=== PATIENT | female | born 1995 | race Caucasian/White ===

== ENCOUNTER 2022-07-17 08:23 | Outpatient (REF) | payer BC, SELFPAY ==
[2022-07-17 08:36] LABS: MANUAL DIFF FLAG NO
[2022-07-17 09:11] LABS: Basophils Absolute Auto 0.1 X10*3/uL (0.0-0.2); Basophils Percent Auto 0.7 % (0-2); Eosinophils Absolute Auto 0.4 X10*3/uL (0.0-0.4); Eosinophils Percent Auto 4.3 % (0-4); Hematocrit 41.2 % (37.0-47.0); Hemoglobin 13.5 g/dl (12.0-16.0); Imm Gran Abs Auto 0.02 X10*3/uL (0.00-0.03); Imm Gran Pct Auto 0.2 % (0.0-0.4); Lymphocytes Absolute Auto 2.4 X10*3/uL (1.2-4.9); Lymphocytes Percent Auto 28.3 % (20-40); Mean Corpuscular HGB Conc 32.8 g/dl (31.0-35.0); Mean Corpuscular Hemoglobin 29.7 pg (27.0-33.0); Mean Corpuscular Volume 90.5 fL (80.0-98.0); Mean Platelet Volume 10.8 fL (9.4-12.3); Monocytes Absolute Auto 0.5 X10*3/uL (0.1-1.2); Neutrophils Absolute Auto 5.2 x10*3/uL (2.0-8.3); Neutrophils Percent Auto 60.5 % (45-73); Platelet Count 283 X10*3/uL (160-400); Red Blood Count 4.55 X10*6/uL (4.20-5.50); Red Cell Distribution Width 12.7 % (11.0-16.0); White Blood Count 8.6 X10*3/uL (4.8-10.8)
[2022-07-17 09:50] LABS: Alanine Aminotransferase 23 U/L (0-31); Albumin Level 4.5 g/dL (3.5-5.0); Alkaline Phosphatase 57 U/L (39-117); Anion Gap 16 (12-20); Aspartate Amino Transferase 21 U/L (5-31); Bilirubin Total 0.4 mg/dL (0.0-1.0); Blood Urea Nitrogen 13 mg/dL (9-16); C Reactive Protein 0.32 mg/dL (< or = 0.50); Calcium 9.4 mg/dL (8.4-10.2); Carbon Dioxide 22 mmol/L (22-29); Chloride 107 mmol/L (96-108); Estimated Glomerular Filt Rate > 60; Glucose Random 96 mg/dL (60-115); Potassium 4.2 mmol/L (3.3-5.1); Sodium 141 mmol/L (135-145); Total Protein 7.6 g/dL (6.5-8.0)
[2022-07-17 09:54] LABS: Erythrocyte Sedimentation Rate 4 MM/HR (0-20)
[2022-07-17 10:00] LABS: HCG Quantitative < 2 mIU/mL; Thyroid Stimulating Hormone 2.91 uIU/mL (0.32-4.0)
[2022-07-20 13:57] LABS: Transglutaminase IgA <1.0 U/mL
[2022-07-23 13:51] LABS: Endomysial IgA Antibody Negative (Negative)
== END 2022-07-17 08:24 | disposition home or self-care (01) ==
LOC: HO.LAB 08:23
PROVIDERS: PCP Registered Nurse; Visit Provider Physician Assistant
DX: R10.32 Left lower quadrant pain (principal); K59.09 Other constipation; K52.9 Noninfective gastroenteritis and colitis, unspecified; R11.0 Nausea
CPT/HCPCS: 36415; 80053; 84443; 84702; 85025; 85652; 86140; 86231; 86364

== ENCOUNTER 2022-07-25 06:15 | Outpatient (REF) | payer BC, SELFPAY ==
--- NOTE | ~2022-07-25 | CT_ITS ---
EXAMINATION: CT ABDOMEN AND PELVIS WITH CONTRAST CLINICAL INFORMATION: Left lower quadrant pain. COMPARISON: None TECHNIQUE: Multidetector volumetric images were obtained from the superior aspect of the liver through the pubic symphysis following administration 85 mL of Omnipaque 350 intravenous contrast. Sagittal and coronal reformatted images were obtained on the technologist's workstation. Oral contrast: No. This CT examination was performed using dose optimization techniques as appropriate, variously including the following: *Automated exposure control *Adjustment of mA and/or kV according to patient size (this includes techniques or standardized protocols for targeted exams where dose is matched to indication/reason for exam; i.e. extremities or head) *Use of iterative reconstruction technique DLP: 236 mGy-cm FINDINGS: LUNG BASES: The visualized lung bases are unremarkable. LIVER, GALLBLADDER, AND BILIARY TREE: The liver is normal in size, shape, and attenuation. No focal hepatic lesion or biliary ductal dilatation is present. The gallbladder is unremarkable with no evidence of radiopaque gallstones, gallbladder wall thickening, or obvious pericholecystic inflammatory changes. PANCREAS: Unremarkable. SPLEEN: Unremarkable. ADRENAL GLANDS: Unremarkable. KIDNEYS AND URETERS: The kidneys are normal in size, shape, and attenuation. No hydronephrosis, hydroureter, or calculi seen. No perinephric stranding. BLADDER: Unremarkable. GASTROINTESTINAL TRACT: There is a large stool burden, suggesting possible constipation. No obstruction, free intraperitoneal air or abscess is seen. There is no focal bowel wall thickening. There is no significant diverticulosis or diverticulitis. The vermiform appendix is unremarkable. ABDOMINAL WALL: No significant hernia is appreciated. LYMPH NODES: Normal. VASCULAR: Unremarkable. PELVIC VISCERA: A tampon is noted within the vaginal vault. The uterus and adnexa are unremarkable. OSSEOUS STRUCTURES: Unremarkable. CT/CT abdomen pelvis w IV con IMPRESSION: 1. Findings suggest possible constipation, without audrey bowel obstruction. No appendicitis or diverticulitis is seen. There is no unusual bowel wall thickening. 2. No urinary calculus or obstructive uropathy is seen. 3. There is no abdominopelvic mass, free fluid or lymphadenopathy. 4. Osseous structures are unremarkable. Fleischner guidelines were followed.
[2022-07-25] MEDS: Barium Sulfate Oral (Mocha) 450 ML ORAL.SUSP 900 ML PO (08:45)
[2022-07-25] MEDS: iohexoL 350 MG/ML 75 ML INFUS..BTL IV (08:46)
== END 2022-07-25 06:16 | disposition home or self-care (01) ==
LOC: HO.CT 06:15
PROVIDERS: Visit Provider Physician Assistant
DX: R10.32 Left lower quadrant pain (principal)
CPT/HCPCS: 74177; Q9967

== ENCOUNTER → 2022-10-19 11:45 | Outpatient (BNVA) | payer BC, SELFPAY | PROVIDERS: PCP Registered Nurse; Visit Provider Physician Assistant | DX: K58.1 Irritable bowel syndrome with constipation (principal) ==

== ENCOUNTER → 2022-11-21 10:18 | Outpatient (BNVA) | payer BC, SELFPAY | PROVIDERS: PCP Registered Nurse; Visit Provider Physician Assistant | DX: Z13.89 Encounter for screening for other disorder (principal) ==